=== PATIENT | female | born 1940 | race Caucasian/White ===

== ENCOUNTER 2016-06-24 11:08 | Emergency (ER) | payer OTHER ==
[2016-06-24 11:28] VITALS: BP 161/84; TEMP 99.7; BMI 23.1
--- NOTE | 2016-06-24 11:52 | ED.PDOC ---
General ED Provider: Dr. JEAN-PAUL DUNN JR Chief Complaint: Respiratory Complaint Stated Complaint: has had cough/fever past 2-3 weeks--is visiting relatives and since symptoms are lingering--is concerned that her bronchitis might be turning to pneumonia--has water eyes with sneezing --cough is non-productive. [ End ] 99.7 89 20 93% 161/84 7/10 Time Seen by Physician: 11:46 Mode of Arrival: Walk-In Information Source: Patient Exam Limitations: No limitations Nursing and Triage Documentation Reviewed and Agree: No Review of Systems - Review Of Systems Constitutional: Reports: Fever, Malaise Eyes: Reports: No symptoms Ears, Nose, Mouth, Throat: Reports: Nose pain (sinus congestion), Nose discharge Respiratory: Reports: Cough (tylenol and tesslon) Cardiac: Reports: No symptoms GI: Reports: No symptoms : Reports: No symptoms Musculoskeletal: Reports: No symptoms Skin: Reports: No symptoms Neurological: Reports: No symptoms Endocrine: Reports: No symptoms Hematologic/Lymphatic: Reports: No symptoms All Other Systems: Other Past Medical History - Past Medical History Endocrine: Reports: Hypothyroid Cardiovascular: Reports: None Respiratory: Reports: None Hematological: Reports: None Gastrointestinal: Reports: Diverticulitis (with colon resection) Genitourinary: Reports: None Neuro/Psych: Reports: None Musculoskeletal: Reports: None Cancer: Reports: Breast Last Menstrual Period: menopause - Surgical History General Surgical History: Reports: Back Surgery, Hernia Repair, Other ( mastectomy--colon resection -- bilateral hernia) - Family History Family History: Reports: Unknown - Social History Smoking Status: Former smoker Hx Substance Use: No Alcohol Screening: None Physical Exam - Physical Exam Appearance: Well-appearing, Thin Ill-appearing: Mild Pain Distress: Mild Eyes: TUAN, EOMI, Conjunctiva clear ENT: Ears normal, Nose normal, Oropharynx normal Neck: Supple Respiratory: Airway patent, Breath sounds clear, Breath sounds equal, Respirations nonlabored Cardiovascular: RRR, Pulses normal, No rub, No murmur GI/: Soft, Nontender, No masses, Bowel sounds normal, No Organomegaly Musculoskeletal: Normal strength, ROM intact, No edema, No calf tenderness Skin: Warm, Dry, Normal color Neurological: Sensation intact, Motor intact, Reflexes intact, Cranial nerves intact, Alert, Oriented Psychiatric: Affect appropriate, Mood appropriate Interpretation - Radiology Interpretation Radiology Interpretation By: Radiologist Radiology Results: Negative Exam Interpreted: CXR (possible copd) Critical Care Note - Critical Care Note Total Time (mins): 0 Course - Course Orders, Labs, Meds: Orders Category Date Time Status CHEST, 2 VIEWS PA & LAT Stat RADS 06/24/16 11:46 Completed Vital Signs: Temp Pulse Resp BP Pulse Ox 06/24/16 11:08 99.7 F H 89 20 161/84 H 93 L Departure - Departure Time of Disposition: 12:26 Disposition: HOME SELF-CARE Discharge Problem: URTI (acute upper respiratory infection), Seasonal allergic rhinitis Instructions: Allergic Rhinitis (ED), Upper Respiratory Infection (ED) Condition: Good Pt referred to PMD for follow-up: Yes Additional Instructions: if fever worsening, if productive cough may begin antibiotic(take with food) prednisone for congestion and allergic symptoms may use plain Robitussin or plain Entex for congestion recheck if fever over 101.0 if short of breath is worsening Prescriptions: Amoxicillin/Potassium Clav [Augmentin 875-125 mg Tab] 1 tab PO BIDWM #14 tablet Prednisone 20 mg PO DIRECTED #50 tablet Allergies/Adverse Reactions: Allergies amitriptyline [From Limbitrol] Adverse Reaction (Verified 06/24/16 11:20) chlordiazepoxide [From Limbitrol] Adverse Reaction (Verified 06/24/16 11:20) morphine Adverse Reaction (Verified 06/24/16 11:20) Home Medications: Ambulatory Orders Amoxicillin/Potassium Clav [Augmentin 875-125 mg Tab] 1 tab PO BIDWM #14 tablet 06/24/16 Ascorbic Acid [Vitamin C] 1,000 mg PO DAILY 06/24/16 Aspirin [Aspir-Low] 81 mg PO DIRECTED 06/24/16 Cholecalciferol (Vitamin D3) [Vitamin D3] 2,000 unit PO DAILY 06/24/16 Cyanocobalamin (Vitamin B-12) [B-12] 500 mcg PO DAILY 06/24/16 Fluticasone/Salmeterol 500/50 [Advair 500-50 Diskus] 1 puff IH DAILY 06/24/16 Glucosamine HCl 1,500 mg PO DAILY 06/24/16 Levothyroxine Sodium [Synthroid] 75 mcg PO QDAC 06/24/16 Linaclotide [Linzess] 145 mcg PO DIRECTED 06/24/16 Loratadine [Claritin] 10 mg PO DAILY 06/24/16 [place]-3 Fatty Acids/Fish Oil [Fish Oil 1,000 mg Capsule] 1 each PO DAILY Polyethylene Glycol 3350 [Miralax] 17 gm PO DAILY 06/24/16 Prednisone 20 mg PO DIRECTED #50 tablet 06/24/16 Ubidecarenone [Co Q-10] 100 mg PO DAILY 06/24/16
--- NOTE | 2016-06-24 12:07 | DI ---
EXAM: Two views of the chest. History: Cough. Findings: Heart size is normal. No focal consolidation. No appreciable pleural fluid and no pneum othorax. Atherosclerotic vascular calcifications. Mild hyperinflation. Surgical clips seen within the right axillary region. No acute osseous abnormalities. Impression: No acute cardiopulmonary process. Possible chronic obstructive pulmonary disease.
== END 2016-06-24 12:43 | disposition home or self-care (01) ==
LOC: ED 11:08
DX: J06.9 Acute upper respiratory infection, unspecified (principal); J30.2 Other seasonal allergic rhinitis; Z79.899 Other long term (current) drug therapy
CPT/HCPCS: 99282